=== PATIENT | female | born 1970 | race Caucasian/White ===

== ENCOUNTER 2024-04-13 15:39 | Outpatient (CLI) | payer MEDICAID | END 2024-04-13 23:59 | disposition home or self-care (01) | LOC: RAD 15:39 | DX: N83.202 Unspecified ovarian cyst, left side (principal); N83.201 Unspecified ovarian cyst, right side; N93.9 Abnormal uterine and vaginal bleeding, unspecified | CPT/HCPCS: 76830; 93976 ==